=== PATIENT | female | born 1955 | race American Indian/Alaskan Native ===

== ENCOUNTER 2016-08-14 11:05 | Outpatient (CLI) | payer BC, OTHER ==
--- NOTE | 2016-08-14 16:19 | Mammography Report ---
BILATERAL DIGITAL SCREENING MAMMOGRAM with CAD : 08/14/16 11:05:00 CLINICAL: Routine screening.History of a benign right surgical biopsy. COMPARISON:08/09/15 FINDINGS: The breasts are heterogeneously dense, which may obscure small masses.Stable right upper outer postsurgical changes with surgical clips and minimal scar. A left biopsy clip at 6:30 o'clock. No mass, architectural distortion or suspicious calcifications. IMPRESSION: No mammographic evidence of malignancy. BI-RADS CATEGORY: 2 -- Benign RECOMMENDATION: Routine mammographic screening in one year. COMMENT: Patient follow-up letters are generated by our [employer] application.
== END 2016-08-14 11:06 | disposition home or self-care (01) ==
LOC: SPVWC 11:05
PROVIDERS: ATTEND Internal Medicine
DX: Z12.31 Encounter for screening mammogram for malignant neoplasm of breast (principal)
CPT/HCPCS: 77067; G0202

== ENCOUNTER 2017-08-31 12:31 | Outpatient (CLI) | payer OTHER ==
--- NOTE | 2017-09-01 11:45 | Mammography Report ---
BILATERAL DIGITAL SCREENING MAMMOGRAM with CAD : 08/31/17 12:31:00 CLINICAL: Routine screening.History of a benign right surgical biopsy. COMPARISON:07/14/16 FINDINGS: The breasts are heterogeneously dense, which may obscure small masses.Right upper outer surgical clips. A left lower inner biopsy clip. No mass, architectural distortion or suspicious calcifications. IMPRESSION: No mammographic evidence of malignancy. BI-RADS CATEGORY: 2 -- Benign RECOMMENDATION: Routine mammographic screening in one year. COMMENT: Patient follow-up letters are generated by our [employer] application.
== END 2017-08-31 12:32 | disposition home or self-care (01) ==
LOC: SPVWC 12:31
PROVIDERS: ATTEND Family Medicine
DX: Z12.31 Encounter for screening mammogram for malignant neoplasm of breast (principal)
CPT/HCPCS: 77067

== ENCOUNTER 2018-09-09 13:49 | Outpatient (CLI) | payer MEDICARE, OTHER ==
--- NOTE | 2018-09-09 16:05 | Mammography Report ---
BILATERAL DIGITAL SCREENING MAMMOGRAM with CAD : 09/09/18 13:49:00 CLINICAL: Routine screening.History of a benign right surgical biopsy. COMPARISON:08/31/17 FINDINGS: The breasts are heterogeneously dense, which may obscure small masses.Stable right upper outer surgical scar with surgical clips. A left lower inner biopsy clip. No mass, architectural distortion or suspicious calcifications. IMPRESSION: No mammographic evidence of malignancy. BI-RADS CATEGORY: 2 -- Benign RECOMMENDATION: Routine mammographic screening in one year. COMMENT: Patient follow-up letters are generated by our [employer] application.
== END 2018-09-09 13:50 | disposition home or self-care (01) ==
LOC: SPVWC 13:49
PROVIDERS: ATTEND Family Medicine
DX: Z12.31 Encounter for screening mammogram for malignant neoplasm of breast (principal)
CPT/HCPCS: 77067

== ENCOUNTER 2019-09-11 12:41 | Outpatient (CLI) | payer MEDICARE, OTHER ==
--- NOTE | 2019-09-11 14:51 | Mammography Report ---
DIGITAL SCREENING MAMMOGRAM WITH CAD, 09/11/2019 INDICATION: Routine screening mammography. History of bilateral benign biopsies. TECHNIQUE: Digital bilateral 2D mammography was obtained in the craniocaudal and mediolateral obliq ue projections. This examination was interpreted with the benefit of Computer-Aided Detection analysi s. COMPARISON: 09/09/2018 FINDINGS: Breast Density: The breasts are heterogeneously dense, which may obscure small masses. There is no evidence of dominant mass, suspicious calcifications or architectural distortion in eithe r breast. Right upper outer postsurgical clips and a left lower biopsy clip. IMPRESSION: No mammographic evidence of malignancy. Follow up recommendation: Routine yearly BI-RADS Category 2: Benign. A "normal" or negative report should not discourage follow up or biopsy of a clinically significant f inding. A written summary of these findings will be mailed to the patient. The patient will be entered into a mammography reporting system which will generate a reminder letter for the patient's next appointmen t at the appropriate interval. The [employer] recommends yearly mammograms starting at age 40 and continuing as l johanny as a woman is in good health. Breast MRI is recommended for women with an approximate 20-25% or greater lifetime risk of breast cancer, including women with a strong family history of breast or ova jeremie cancer or who have been treated for Hodgkin's disease. Signer Name: Jose Vick MD Signed: 09/11/2019 2:47 PM Workstation Name: [id number]
== END 2019-09-11 12:42 | disposition home or self-care (01) ==
LOC: SPVWC 12:41
PROVIDERS: ATTEND Family Medicine
DX: Z12.31 Encounter for screening mammogram for malignant neoplasm of breast (principal)
CPT/HCPCS: 77067

== ENCOUNTER 2021-10-07 13:52 | Outpatient (CLI) | payer MEDICARE, OTHER ==
--- NOTE | 2021-10-09 14:15 | Mammography Report ---
DIGITAL SCREENING MAMMOGRAM WITH CAD, 10/07/2021 CLINICAL INFORMATION / INDICATION: Routine screening mammography. SCREENING MAMMO TECHNIQUE: Digital bilateral 2D mammography was obtained in the craniocaudal and mediolateral obliqu e projections. This examination was interpreted with the benefit of Computer-Aided Detection analysis . COMPARISON: Prior mammogram 09/11/2019 FINDINGS: Breast Density: The breasts are heterogeneously dense, which may obscure small masses. No dominant mass, suspicious calcifications, or architectural distortion in either breast. There is stable benign postsurgical change in the right breast and a stable biopsy clip in the left b reast. There has been no significant change compared with the prior examination. IMPRESSION: No mammographic evidence of malignancy. Follow up recommendation: Routine yearly BI-RADS Category 2: BENIGN. A "normal" or negative report should not discourage follow up or biopsy of a clinically significant f inding. A written summary of these findings will be mailed to the patient. The patient will be entered into a mammography reporting system which will generate a reminder letter for the patient's next appointmen t at the appropriate interval. The [employer] recommends yearly mammograms starting at age 40 and continuing as l johanny as a woman is in good health. Breast MRI is recommended for women with an approximate 20-25% or greater lifetime risk of breast cancer, including women with a strong family history of breast or ova jeremie cancer or who have been treated for Hodgkin's disease. Signer Name: Leah Salinas MD Signed: 10/09/2021 2:11 PM Workstation Name: [id number]
== END 2021-10-07 13:53 | disposition home or self-care (01) ==
LOC: SPVWC 13:52
PROVIDERS: ATTEND Family Medicine
DX: Z12.31 Encounter for screening mammogram for malignant neoplasm of breast (principal)
CPT/HCPCS: 77067